=== PATIENT | female | born 1960 | race Caucasian/White ===

== ENCOUNTER 2016-11-29 00:38 | Emergency (ER) | payer OTHER ==
[~2016-11-29] VITALS: Ht 167.6 cm; Wt 90.0 kg
[2016-11-29 00:40] VITALS: BP 132/78; PULSE 84; RESP 18; TEMP 98.1; O2SAT 100
[2016-11-29 00:44] VITALS: PULSE 150; RESP 22; O2SAT 100
[2016-11-29] MEDS ORDERED: ASPI81CH CHEW (00:54)
[2016-11-29] MEDS ORDERED: METO100T9 PO (00:54)
[2016-11-29] MEDS ORDERED: SODIUM CHLORIDE 0.9% FLUSH 10 ML FLUSH IVF PRN (01:00)
[2016-11-29] MEDS ORDERED: DILTIAZEM INJ 125 MG in SODIUM CHLORIDE 0.9% INJ 100 ML IV SCH (01:00)
[2016-11-29] MEDS ORDERED: DILTIAZEM HCL 25 MG/5 ML VIAL IV ONE (01:00)
[2016-11-29 01:01] VITALS: O2SAT 100
[2016-11-29] MEDS ORDERED: SODIUM CHLORID 0.9% 500 ML INJ 500 ML IV ONE (01:15)
[2016-11-29 01:17] LABS: AUTOMATED NEUTROPHIL # 3.9 TH/MM3 (1.8-7.7); BASOPHIL # 0.1 TH/MM3 (0-0.2); BASOPHIL % 0.7 % (0.0-2.0); EOSINOPHIL # 0.1 TH/MM3 (0-0.4); EOSINOPHIL % 1.3 % (0.0-4.0); HEMATOCRIT 43.4 % (35.0-46.0); HEMO FLAGS DIFF FINAL; LYMPH % 40.5 % (9.0-44.0); LYMPHOCYTE # 3.2 TH/MM3 (1.0-4.8); MEAN CORPUSCULAR HEMOGLOBIN 28.2 PG (27.0-34.0); MONO % 8.6 % (0.0-8.0); NEUT % 48.9 % (16.0-70.0); PLATELET COUNT 253 TH/MM3 (150-450); RED BLOOD COUNT 5.22 MIL/MM3 (4.00-5.30); RED CELL DISTRIBUTION WIDTH 13.3 % (11.6-17.2)
[2016-11-29 01:26] LABS: APTT (PATIENT) 26.6 SEC (24.3-30.1); INTERNATIONAL NORMALIZED RATIO 0.9 RATIO
[2016-11-29 01:39] LABS: BACTERIA, URINE RARE /hpf; BLOOD, URINE TRACE (NEG); GLUCOSE,URINE NEG (NEG); KETONE, URINE NEG (NEG); MUCUS URINE FEW /lpf (OCC); NITRITE,URINE NEG (NEG); SQUAMOUS EPITHELIAL CELL URINE <1 /hpf (0-5); URINE COLOR LIGHT-YELLOW (YELLW/STRAW)
[2016-11-29 01:40] LABS: COMMENT (UR) CULT NOT INDICATED; CULTURE IF INDICATED CULT NOT INDICATED
[2016-11-29 01:48] LABS: ALT (GPT) 32 U/L (10-53); ANION GAP 11 MEQ/L (5-15); AST (GOT) 28 U/L (15-37); BICARBONATE 24.6 MEQ/L (21.0-32.0); BLOOD UREA NITROGEN 16 MG/DL (7-18); CHLORIDE 106 MEQ/L (98-107); GLOMERULAR FILTRATION RATE 58 ML/MIN (>89); MAGNESIUM 2.2 MG/DL (1.5-2.5); POTASSIUM 3.9 MEQ/L (3.5-5.1); SODIUM (NA) 142 MEQ/L (136-145)
--- NOTE | 2016-11-29 01:54 | RADRPT ---
EXAM DATE/TIME: 11/29/2016 01:35 [place] COMPARISON: No previous studies available for comparison. INDICATIONS : Chest pain. MEDICAL HISTORY : None. SURGICAL HISTORY : None. ENCOUNTER: Initial ACUITY: 1 day PAIN SCORE: 0/10 LOCATION: Bilateral chest FINDINGS: A single view of the chest demonstrates the lungs to be symmetrically aerated without evidence of mas s, infiltrate or effusion. The cardiomediastinal contours are unremarkable. Osseous structures are intact. CONCLUSION: The lungs are clear. Kevin Stauffer MD on November 29, 2016 at 1:52 Board Certified Radiologist. This report was verified electronically.
[2016-11-29 02:03] LABS: ALKALINE PHOSPHATASE 78 U/L (45-117); CREATINE KINASE 99 U/L (26-192); TOTAL BILIRUBIN ADULT 0.3 MG/DL (0.2-1.0)
--- NOTE | 2016-11-29 02:03 | PD ---
HPI Chief Complaint: Cardiac Complaint Time Seen by Provider: 00:54 Travel History International Travel<30 days: No Contact w/Intl Traveler<30days: No Traveled to known affect area: No History of Present Illness HPI The patient is a 56 year old female who presents to the [facility] emergency department with a history of palpitations that she reports began at 11 PM. The patient reports that she has a history of atrial flutter/atrial flutter that she was first diagnosed with last year. The patient reports that she realized when she started to have symptoms that she forgot to take her metoprolol at 9 PM. She reports that she's also been drinking more caffeine than usual over the last 2 days drinking 2 cokes per day. She denies any alcohol use. The patient reports that her pharmacy delivery driver is in [place]. Her primary care physician is also in [place]. The patient reports having dizziness and a lightheaded sensation associated with this. The patient denies any recent fevers, cough, congestion, neck pain, chest pain, shortness of breath, abdominal pain, vomiting, diarrhea, urinary symptoms, or other neurologic symptoms. [facility] Past Medical History Narrative Medical The patient's past medical history is significant for paroxysmal atrial fibrillation/atrial flutter. Atrial Fibrillation: Yes (AFIB/AFLUTTER) Cardiovascular Problems: Yes (AFIB/AFLUTTER) Tetanus Vaccination: < 5 Years Influenza Vaccination: No Past Surgical History Narrative Surgical The patient's past surgical history is significant for breast augmentation, appendectomy, hysterectomy. Appendectomy: Yes Hysterectomy: Yes Other Surgery: Yes (AUGMENTATION) Social History Alcohol Use: Yes Tobacco Use: No Substance Use: No Allergies-Medications (Allergen,Severity, Reaction): Coded Allergies: Codeine (Verified Allergy, Mild, 11/29/16) Tylenol (Verified Allergy, Unknown, 11/29/16) ANXIOUS Valium (Verified Allergy, Unknown, 11/29/16) HIVES Reported Meds & Prescriptions Reported Meds & Active Scripts Active Macrobid (Nitrofurantoin Monohydrate Macrocrystals) 100 Mg Capsule 100 Mg PO BID 7 Days Reported Aspirin 81 Mg Chew 81 Mg CHEW DAILY Metoprolol Succinate ER 24 HR (Metoprolol Succinate) 100 Mg Tab 125 Mg PO DAILY Review of Systems Except as stated in HPI: all other systems reviewed are Neg General / Constitutional: No: Fever Eyes: No: Visual changes HENT: Positive: Lightheadedness, No: Headaches Cardiovascular: Positive: Palpitations, Tachycardia, No: Chest Pain or Discomfort Respiratory: No: Shortness of Breath Gastrointestinal: No: Abdominal Pain Genitourinary: No: Dysuria Musculoskeletal: No: Pain Skin: No Rash Neurologic: Positive: Dizziness, No: Weakness, Focal Abnormalities, Ataxia, Change in Mentation, Slurred Speech, Sensory Disturbance Psychiatric: No: Depression Endocrine: No: Polydipsia Hematologic/Lymphatic: No: Easy Bruising Physical Exam Narrative General: The patient is a well-developed well-nourished female in no acute distress. Head and Neck exam: Head is normocephalic atraumatic. Eyes: EOMI, pupils are equal round and reactive to light. Nose: Midline septum with pink mucous membranes Mouth: Dentition unremarkable. Moist mucus membranes. Posterior oropharynx is not erythematous. No tonsillar hypertrophy. Uvula midline. Airway patent. Neck: No palpable lymphadenopathy. No nuchal rigidity. No thyromegaly. Cardiovascular: Irregularly irregular with a rate in the 130s to 140s without murmurs, gallops, or rubs. Lungs: Clear to auscultation bilaterally. No wheezes, rhonchi, or rales. Abdomen: Soft, without tenderness to palpation in all 4 quadrants of the abdomen. No guarding, rebound, or rigidity. Normal bowel sounds are audible. No tenderness on palpation of McBurney's point. Extremities: No clubbing, cyanosis, or edema. 2+ pulses in all 4 extremities. No calf tenderness on palpation. Back: No costovertebral angle tenderness to palpation. Neurologic Exam: Cranial nerves 2-12 were intact on exam. Strength is 5/5 in all 4 extremities. No sensory deficits noted. Skin Exam: No rash noted. Intact skin that is warm and dry. Data Data Last Documented VS Vital Signs Date Time Temp Pulse Resp B/P Pulse Ox O2 Delivery O2 Flow Rate FiO2 11/29/16 04:49 72 18 130/67 100 Room Air 11/29/16 00:40 98.1 Orders Electrocardiogram (11/29/16 00:58) Complete Blood Count With Diff (11/29/16 00:58) Comprehensive Metabolic Panel (11/29/16 00:58) Creatine Kinase (Cpk) (11/29/16 00:58) Ckmb (Isoenzyme) Profile (11/29/16 00:58) Troponin I (11/29/16 00:58) B-Type Natriuretic Peptide (11/29/16 00:58) Prothrombin Time / Inr (Pt) (11/29/16 00:58) Act Partial Throm Time (Ptt) (11/29/16 00:58) Lipase (11/29/16 00:58) Urinalysis - C+S If Indicated (11/29/16 00:58) Magnesium (Mg) (11/29/16 00:58) Thyroid Stimulating Hormone (11/29/16 00:58) Chest, Single Ap (11/29/16 00:58) Iv Access Insert/Monitor (11/29/16 00:58) Ecg Monitoring (11/29/16 00:58) Oximetry (11/29/16 00:58) Blood Pressure (11/29/16 01:00) Diltiazem Inj (Cardizem Inj) (11/29/16 01:00) Sodium Chloride 0.9% Flush (Ns Flush) (11/29/16 01:00) Diltiazem Inj (Cardizem Inj) (11/29/16 01:00) Sodium Chlorid 0.9% 500 Ml Inj (Ns 500 M (11/29/16 01:15) Electrocardiogram (11/29/16 03:24) Labs Laboratory Tests Test 11/29/16 11/29/16 01:06 01:11 Urine Color LIGHT-YELLOW Urine Turbidity CLEAR Urine pH 6.0 Urine Specific [place] 1.008 Urine Protein NEG mg/dL Urine Glucose (UA) NEG mg/dL Urine Ketones NEG mg/dL Urine Occult Blood TRACE Urine Nitrite NEG Urine Bilirubin NEG Urine Urobilinogen LESS THAN 2.0 MG/DL Urine Leukocyte Esterase NEG Urine RBC LESS THAN 1 /hpf Urine WBC 1 /hpf Urine Squamous Epithelial <1 /hpf Cells Urine Bacteria RARE /hpf Urine Mucus FEW /lpf Microscopic Urinalysis Comment CULT NOT INDICATED White Blood Count 8.0 TH/MM3 Red Blood Count 5.22 MIL/MM3 Hemoglobin 14.7 GM/DL Hematocrit 43.4 % Mean Corpuscular Volume 83.0 FL Mean Corpuscular Hemoglobin 28.2 PG Mean Corpuscular Hemoglobin 34.0 % Concent Red Cell Distribution Width 13.3 % Platelet Count 253 TH/MM3 Mean Platelet Volume 9.8 FL Neutrophils (%) (Auto) 48.9 % Lymphocytes (%) (Auto) 40.5 % Monocytes (%) (Auto) 8.6 % Eosinophils (%) (Auto) 1.3 % Basophils (%) (Auto) 0.7 % Neutrophils # (Auto) 3.9 TH/MM3 Lymphocytes # (Auto) 3.2 TH/MM3 Monocytes # (Auto) 0.7 TH/MM3 Eosinophils # (Auto) 0.1 TH/MM3 Basophils # (Auto) 0.1 TH/MM3 CBC Comment DIFF FINAL Differential Comment Prothrombin Time 10.0 SEC Prothromb Time International 0.9 RATIO Ratio Activated Partial 26.6 SEC Thromboplast Time Sodium Level 142 MEQ/L Potassium Level 3.9 MEQ/L Chloride Level 106 MEQ/L Carbon Dioxide Level 24.6 MEQ/L Anion Gap 11 MEQ/L Blood Urea Nitrogen 16 MG/DL Creatinine 0.99 MG/DL Estimat Glomerular Filtration 58 ML/MIN Rate Random Glucose 125 MG/DL Calcium Level 9.2 MG/DL Magnesium Level 2.2 MG/DL Total Bilirubin 0.3 MG/DL Aspartate Amino Transf 28 U/L (AST/SGOT) Alanine Aminotransferase 32 U/L (ALT/SGPT) Alkaline Phosphatase 78 U/L Total Creatine Kinase 99 U/L Troponin I LESS THAN 0.02 NG/ML B-Type Natriuretic Peptide 79 PG/ML Total Protein 7.8 GM/DL Albumin 3.8 GM/DL Lipase 272 U/L Thyroid Stimulating Hormone 5.340 uIU/ML 3rd Gen [facility] Medical Decision Making Medical Screen Exam Complete: Yes Emergency Medical Condition: Yes Medical Record Reviewed: Yes Interpretation(s) Last Impressions Chest X-Ray 11/29/16 0058 Signed Impressions: Service Date/Time: Tuesday, November 29, 2016 01:35 - CONCLUSION: The lungs are clear. Kevin Stauffer MD Differential Diagnosis Atrial flutter, versus atrial fibrillation, versus SVT Narrative Course During the course of the patients emergency department visit, the patients history, examination, and differential diagnosis were reviewed with the patient. The patient had IV access obtained and blood work sent for analysis. The patient was placed on a cardiac exercise specialist with oximetry and blood pressure monitoring. An EKG was done on arrival. The patient's EKG done initially at 12 :44 AM reveals atrial flutter with rapid ventricular response, no acute ST segment elevation, downsloping ST segments are noted in leads V3, V4, V5. QRS duration is 85 ms, QTC 423 ms. The patient had order to administer Cardizem 20 mg IV, followed by a drip, however the patient spontaneously converted to a sinus rhythm prior to the medication being started. Repeat ECG reveals a sinus rhythm heart rate is 71, no acute ST segment elevation or depression, T waves inverted in V1, QRS duration is 80 ms, QTC 415 milliseconds. The patient on reexamination reports feeling improved. The patients laboratory studies were reviewed and remarkable for a CBC that is unremarkable. CMP is remarkable for glucose of 125, CPK 99, troponin I less than 0.02, BNP 79 lipase 272, TSH 5.34. On further questioning the patient reports that she has had a history recently of weight gain and increased fatigue. She reports that she had a borderline TSH previously. The patient will be given a copy of this lab result to follow-up with her primary care physician. PT 10, PTT 26.6, urinalysis shows trace occult blood, rare bacteria , culture not indicated. Radiology studies were reviewed and remarkable for a chest x-ray that shows no acute abnormality. The patient was offered admission for continued observation, however the patient reports that she prefers to follow-up with her pharmacy delivery driver be discharged home. The patient was instructed to notify her pharmacy delivery driver regarding this emergency department visit later today. She was instructed to avoid caffeine. She is instructed to follow-up with her primary care physician regarding her elevated TSH. The patient is resting comfortably and feels better, is alert and in no distress. The patients results and examination findings were discussed with the patient. The repeat examination is unremarkable and benign. The history, exam, diagnostic testing, and current condition do not suggest any significant pathology to warrant further testing, continued ED treatment, admission, or surgical evaluation at this point. The vital signs have been stable. The patient does not have uncontrollable pain, intractable vomiting, or other significant symptoms. The patient's condition is stable and appropriate for discharge. The patient will pursue further outpatient evaluation with a primary care physician or other designated or consulting physician as indicated in the discharge instructions. The patient expressed understanding and was agreeable with this plan. Diagnosis Primary Impression: Atrial flutter, paroxysmal Additional Impression: Hypothyroid Qualified Code: E03.9 - Hypothyroidism, unspecified type Referrals: Copying Machine Mechanic 1 day Primary Care Physician 2 days Patient Instructions: Atrial Flutter (ED), General Instructions Additional Instructions: The patient is instructed to continue on her medications as previously prescribed and follow-up with her pharmacy delivery driver by phone regarding this emergency department visit in the morning. Med/Other Pt SpecificInfo: Prescription(s) given Scripts Nitrofurantoin Monohydrate Macrocrystals (Macrobid)100 Mg [id number] Mg PO BID 7 Days Ref 0 Prov:Sonal Nair MD 11/29/16 Disposition: 01 DISCHARGE HOME Condition: Stable Sonal Nair MD Nov 29, 2016 02:03
[2016-11-29] MEDS ORDERED: MACR100C2 PO (03:28)
[2016-11-29 04:49] VITALS: BP 130/67; PULSE 72; RESP 18; O2SAT 100
--- NOTE | 2016-11-29 23:09 | EKG ---
Date Performed: 11/29/2016 Time Performed: 03:24:23 PTAGE: 56 years EKG: Sinus rhythm NORMAL ECG Compared to the PREVIOUS TRACING AF no longer present DOCTOR: Usman Granado Interpretating Date/Time 11/29/2016 23:07:48
--- NOTE | 2016-11-29 23:13 | EKG ---
Date Performed: 11/29/2016 Time Performed: 00:44:46 PTAGE: 56 years EKG: ATRIAL FLUTTER/FIBRILLATION WITH RAPID VENTRICULAR RESPONSE ST DEPRESSION NO PREVIOUS TRACING DOCTOR: Usman Granado Interpretating Date/Time 11/29/2016 23:12:06
== END 2016-11-29 04:52 | disposition home or self-care (01) ==
LOC: NEPE 00:38
DX: I48.92 Unspecified atrial flutter (principal); E03.9 Hypothyroidism, unspecified; I48.91 Unspecified atrial fibrillation
CPT/HCPCS: 71010; 80053; 81001; 82550; 83690; 83735; 83880; 84443; 84484; 85025; 85610; 85730; 93005; 99285; J7040